=== PATIENT | male | born 1955 | race Caucasian/White ===

== ENCOUNTER → 2018-05-08 | Outpatient (CLI) | payer OTHER ==
[~2018-05-08] MED LIST: CELE100; CEPH500 PO; CYCL10; SULTRIDS PO; TRAM50 PO
== END | disposition home or self-care (01) ==
LOC: LAB EV 15:22 → LAB SHORT 15:22
DX: L08.9 Local infection of the skin and subcutaneous tissue, unspecified (principal)
CPT/HCPCS: 87070; 87147; 87205

== ENCOUNTER → 2019-03-31 | Outpatient (CLI) | payer OTHER ==
[2019-03-31 18:12] LABS: IMMATURE RETIC FRACTION 10.7 % (2.3-16.0); RETIC HGB EQUIVALENT 40.6 pg (28.20-36.60); RETICULOCYTE COUNT PERCENT 1.98 % (0.50-2.50)
== END | disposition home or self-care (01) ==
LOC: LAB SHORT 11:30 → LAB 11:30
PROVIDERS: Internal Medicine Hematology & Oncology
DX: D72.819 Decreased white blood cell count, unspecified (principal); E53.8 Deficiency of other specified B group vitamins
CPT/HCPCS: 85045

== ENCOUNTER 2019-11-18 10:11 | Day surgery (SDC) | payer MEDICARE, OTHER ==
[~2019-11-18] VITALS: Ht 162.6 cm; Wt 66.0 kg
[~2019-11-18 10:11] MED LIST changes: +ALBU90OI INH
--- NOTE | 2019-11-18 11:25 | NUR ---
11/18/19 1125 Yusra Mathur History, Chart, Medications and Allergies reviewed before start of procedure. PATIENT CONFIRMS NPO STATUS AND AGREES WITH SCHEDULED PROCEDURE. MONITOR INTACT WITH CONTINUOUS PULSE OXIMETRY AND INTERMITTENT BP. O2 VIA N/C INTACT THROUGHOUT SEDATION/PROCEDURE. 3-LEAD EKG REVIEWED WITH PHYSICIAN PRIOR TO START OF PROCEDURE. PATIENT DETERMINED TO BE ASA APPROPRIATE FOR PROPOFOL SEDATION PRIOR TO START OF PROCEDURE BY DR. GERMAN.
--- NOTE | 2019-11-18 12:26 | NUR ---
Lungs clear T/O to Auscultation.Ambulatory in Day Surgery Discharge instructions reviewed with patient. Patient verbalizes understanding. Copy given to patient to take home. Discharged via wheelchair to private car for ride home.
== END 2019-11-18 12:24 | disposition home or self-care (01) ==
LOC: ORSCMMR 10:11 → ORD 11:00 → ORSCMMR 11:30
PROVIDERS: Internal Medicine Gastroenterology
PROC: 0DBH8ZX Excision of Cecum, Via Natural or Artificial Opening Endoscopic, Diagnostic (ICD-10-PCS; principal; 2019-11-18 11:30)
DX: R19.5 Other fecal abnormalities (principal); Z86.19 Personal history of other infectious and parasitic diseases; J45.909 Unspecified asthma, uncomplicated
CPT/HCPCS: 88305; J2704; J7120

== ENCOUNTER 2020-10-03 08:52 | Day surgery (SDC) | payer MEDICARE, OTHER ==
[~2020-10-03] VITALS: Ht 165.1 cm; Wt 62.5 kg
[~2020-10-03 08:52] MED LIST changes: +MOTRIN IB200 MG PO
[2020-10-03] MEDS ORDERED: CODACE30 PO (09:44)
--- NOTE | 2020-10-03 10:09 | NUR ---
10/03/20 1009 Elva Restrepo INTERSCALENE NERVE BLOCK CONDUCTED IN PRE-OP WITH DR. FLORES. TIME-OUT & SITE CHECK PERFORMED. DR. FLORES ADMINISTERED 2MG VERSED IVP & 50MCG FENTANYL IVP. PULSE OX ON PATIENT THROUGHOUT PROCEDURE; PT TOLERATED WELL. NO ISSUES OR COMPLICATIONS. COMPLETE AT 1002.
--- NOTE | 2020-10-03 10:39 | NUR ---
10/03/20 1039 Reinaldo Lincoln 1 MG EPI OF EPI ADDED TO EACH OF THE FIRST 3 BAGS OF LR FOR IRRGATION.
--- NOTE | 2020-10-03 11:38 | NUR ---
10/03/20 1138 Zuri Leon DC'Iraida AT 1137. SATS ARE 100%.
== END 2020-10-03 12:40 | disposition home or self-care (01) ==
LOC: ORSCSDS 08:52
PROVIDERS: Orthopaedic Surgery
PROC: 0RNJ4ZZ Release Right Shoulder Joint, Percutaneous Endoscopic Approach (ICD-10-PCS; principal; 2020-10-03 10:30)
PROC: 0LQ14ZZ Repair Right Shoulder Tendon, Percutaneous Endoscopic Approach (ICD-10-PCS; principal; 2020-10-03 10:30)
PROC: 0RBJ4ZZ Excision of Right Shoulder Joint, Percutaneous Endoscopic Approach (ICD-10-PCS; principal; 2020-10-03 10:30)
DX: M75.121 Complete rotator cuff tear or rupture of right shoulder, not specified as traumatic (principal); M75.21 Bicipital tendinitis, right shoulder; M75.41 Impingement syndrome of right shoulder; M19.011 Primary osteoarthritis, right shoulder; J44.9 Chronic obstructive pulmonary disease, unspecified; B19.20 Unspecified viral hepatitis C without hepatic coma; Z79.899 Other long term (current) drug therapy
CPT/HCPCS: C1713; J0171; J0690; J1100; J1885; J2250; J2405; J2704; J2710; J3010; J7120

== ENCOUNTER → 2021-08-09 | Outpatient (CLI) | payer MEDICARE, OTHER ==
[~2021-08-09] MED LIST changes: +CODACE30 PO
[2021-08-09 19:08] LABS: BASOPHILS ABSOLUTE AUTO 0.01 K/mm3 (0.00-0.23); BASOPHILS PERCENT AUTO 1 % (0-2); EOSINOPHILS PERCENT AUTO 0 % (0-6); Hematocrit 34.5 % (37.0-53.0); Hemoglobin 11.7 g/dL (13.5-17.5); IMMATURE GRAN ABSOLUTE AUTO 0.02 K/mm3 (0.00-0.10); IMMATURE GRAN PERCENT AUTO 1 % (0-1); LYMPHOCYTES ABSOLUTE AUTO 0.87 K/mm3 (0.84-5.20); LYMPHOCYTES PERCENT AUTO 52 % (21-46); MONOCYTES PERCENT AUTO 30 % (4-13); Mean Corpuscular HGB 36.7 pg (26.0-34.0); Mean Corpuscular HGB Conc 33.9 g/dL (31.5-36.5); Mean Corpuscular Volume 108 fL (80-100); Mean Platelet Volume 11.5 fL (9.1-12.4); NEUTROPHILS ABSOLUTE AUTO 0.29 K/mm3 (1.96-9.15); NEUTROPHILS PERCENT AUTO 17 % (41-73); Platelet Count 146 K/mm3 (150-400); RDW Coefficient Variation 13.5 % (11.7-14.2); RDW Standard Deviation 53.5 fL (35.1-46.3); Red Blood Cell Count 3.19 M/mm3 (4.30-5.90); White Blood Cell Count 1.69 K/mm3 (4.00-11.30)
[2021-08-09 19:16] LABS: Alanine Aminotransfer (ALT/SGP 23 U/L (12-78); Albumin, Blood 3.9 g/dL (3.4-5.0); Alk Phos 94 U/L (50-136); Anion Gap 7 mmol/L (6-16); Aspartate Aminotrans (AST/SGOT 22 U/L (12-37); Bilirubin, Total 0.7 mg/dL (0.1-1.0); Blood Urea Nitrogen 11 mg/dL (8-24); Bun/Creatinine Ratio 15.3 (12.0-20.0); CO2, Blood 26 mmol/L (21-32); Calcium, Blood 8.4 mg/dL (8.5-10.1); Chloride, Blood 108 mmol/L (98-108); Creatinine, Blood 0.72 mg/dL (0.60-1.20); Ferritin, Serum 78 ng/mL (26-388); Globulin, Blood 3.8 g/dL (2.2-4.0); Glomerular Filtration Rate >60 (60-); Glucose, Blood 90 mg/dL (70-99); Iron Serum 161 ug/dL (65-175); Percent Saturation 40.9 % (20.0-50.0); Potassium, Blood 3.7 mmol/L (3.5-5.5); Sodium, Blood 141 mmol/L (136-145); Total Iron Binding Capacity 394 ug/dL (250-450); Total Protein, Blood 7.7 g/dL (6.4-8.2)
[2021-08-10 18:12] LABS: ANA DIRECT Negative (Negative); ANTI-DNA (DS) AB QN 2 IU/mL (0-9); RNP ANTIBODIES 0.2 AI (0.0-0.9); SJOGREN'S ANTI-SS-A <0.2 AI (0.0-0.9); SJOGREN'S ANTI-SS-B <0.2 AI (0.0-0.9); SMITH ANTIBODIES <0.2 AI (0.0-0.9)
== END | disposition home or self-care (01) ==
LOC: LAB SHORT 17:45 → LAB 17:45
PROVIDERS: Family Medicine
DX: D69.6 Thrombocytopenia, unspecified (principal); D70.9 Neutropenia, unspecified; D75.89 Other specified diseases of blood and blood-forming organs; E53.9 Vitamin B deficiency, unspecified
CPT/HCPCS: 80053; 82306; 82607; 82728; 82746; 83540; 83550; 85025; 86225; 86235

== ENCOUNTER 2022-01-28 11:33 | Inpatient (IN) | payer MEDICARE, OTHER ==
[~2022-01-28] VITALS: Ht 165.1 cm; Wt 67.3 kg
[~2022-01-28 11:33] MED LIST changes: -CYCLOBENZAPRINE5 MG PO
[2022-01-28 12:08] LABS: Mean Corpuscular HGB 41.9 pg (26.0-34.0); Mean Corpuscular HGB Conc 31.3 g/dL (31.5-36.5); NRBC ABSOLUTE 0.37 K/mm3 (0.00-0.02); NRBC Auto 1.4 /100 WBC (0.0-0.2); RDW Coefficient Variation 22.5 % (11.7-14.2); RDW Standard Deviation 105.5 fL (35.1-46.3); Red Blood Cell Count 0.86 M/mm3 (4.30-5.90); White Blood Cell Count 25.95 K/mm3 (4.00-11.30)
[2022-01-28 12:15] LABS: Mean Corpuscular Volume 134 fL (80-100); Mean Platelet Volume 13.4 fL (9.1-12.4)
[2022-01-28 12:16] LABS: Hemoglobin 3.6 g/dL (13.5-17.5); Platelet Count 28 K/mm3 (150-400)
[2022-01-28 12:17] LABS: Hematocrit 11.5 % (37.0-53.0)
[2022-01-28 12:32] LABS: Alanine Aminotransfer (ALT/SGP 119 U/L (12-78); Albumin, Blood 3.3 g/dL (3.4-5.0); Alk Phos 441 U/L (50-136); Anion Gap 12 mmol/L (6-16); Aspartate Aminotrans (AST/SGOT 159 U/L (12-37); Bilirubin, Total 1.2 mg/dL (0.1-1.0); Blood Urea Nitrogen 17 mg/dL (8-24); Bun/Creatinine Ratio 25.2 (12.0-20.0); CO2, Blood 21 mmol/L (21-32); Calcium, Blood 8.7 mg/dL (8.5-10.1); Chloride, Blood 100 mmol/L (98-108); Creatinine, Blood 0.68 mg/dL (0.60-1.20); Globulin, Blood 3.3 g/dL (2.2-4.0); Glomerular Filtration Rate >60 (60-); Glucose, Blood 162 mg/dL (70-99); Potassium, Blood 4.3 mmol/L (3.5-5.5); Sodium, Blood 133 mmol/L (136-145); Total Protein, Blood 6.6 g/dL (6.4-8.2)
[2022-01-28 12:37] LABS: Percent Saturation 72.7 % (20.0-50.0)
[2022-01-28 12:43] LABS: Uric Acid, Blood 7.7 mg/dL (3.5-7.2)
[2022-01-28 12:52] LABS: BAND PERCENT MAN 13 % (0-8); BASOPHILS PERCENT MAN 0 % (0-2); BLASTS PERCENT MAN 2 % (0-0); EOSINOPHILS PERCENT MAN 0 % (0-6); LYMPHOCYTES ABSOLUTE MAN 2.59 K/mm3 (0.84-5.20); LYMPHOCYTES PERCENT MAN 10 % (21-46); METAMYELOCYTE ABSOLUTE MAN 1.55 K/mm3 (0.00-0.00); METAMYELOCYTE PERCENT MAN 6 % (0-0); MONOCYTES ABSOLUTE MAN 2.33 K/mm3 (0.16-1.47); MONOCYTES PERCENT MAN 9 % (4-13); MYELOCYTE ABSOLUTE MAN 2.59 K/mm3 (0.00-0.00); MYELOCYTE PERCENT MAN 10 % (0-0); NEUTROPHILS ABSOLUTE MAN 15.82 K/mm3 (1.96-9.15); PROMYELOCYTE ABSOLUTE MAN 0.51 K/mm3 (0.00-0.00); PROMYELOCYTE PERCENT MAN 2 % (0-0); SEG NEUTROPHILS PERCENT MAN 48 % (41-73); TOTAL CELLS COUNTED 100
[2022-01-28 13:17] LABS: Source, Urine Clean Catch
[2022-01-28 13:23] LABS: Appearance, Urine Clear (Clear); Bilirubin, Urine Neg (Neg); Blood, Urine Neg (Neg); Color, Urine Yellow (P-Yellow); Glucose Qualitative, Urine Neg (Neg); Ketones, Urine Neg (Neg); Leukocyte Esterase, Urine Neg (Neg); Nitrite, Urine Neg (Neg); Protein, Urine Neg (Neg); Urobilinogen, Urine NORM (Normal)
[2022-01-28 13:47] LABS: D-Dimer, Quantitative 22.16 mg/L FEU (0.00-0.52); International Normalized Ratio 1.61; Prothrombin Time Results 16.4 Sec (9.7-11.5)
[2022-01-28 13:47] LABS: U Amphetamine Screen DETECTED; U Barbituate Screen Not Detected; U Benzodiazapine Screen DETECTED; U Buprenorphine Screen Not Detected; U Cannabinoids Screen DETECTED; U Cocaine Screen Not Detected; U Methadone Screen Not Detected; U Methamphetamine Screen DETECTED; U Opiates Screen Not Detected; U Oxycodone Screen Not Detected; U Phencyclidine Screen Not Detected; U Propoxyphene Screen Not Detected
[2022-01-28] MEDS ORDERED: CYCLOBENZAPRINE5 MG PO (14:48)
--- NOTE | 2022-01-28 17:44 | NUR ---
ASSUMPTION OF CARE RECEIVED REPORT AT 1612 FROM MURTAZA TIERNEY, PATIENT ARRIVED TO UNIT FROM ED VIA GURNEY AT 1659. 3 PERSON TRANSFER TO BED. PATIENT A/O, VITALS STABLE ON RA. PRBC INFUSING TO RAC IV. ADDITIONAL IV BEING PLACED UPON ARRIVAL TO UNIT. PATIENT DENIED PAIN, JUST STATED HE FELT COLD. ANSWERING QUESTIONS APPROPRIATELY, CALM AND COOPERATIVE WITH CARE. REDNESS NOTED TO COCCYX, BLANCHABLE. REPOSITIONED PATIENT TO SIDE. ORDERS REVEIWED. WILL TREAT PRESCRIBED.
[2022-01-28 21:50] LABS: Hematocrit 22.9 % (37.0-53.0); Hemoglobin 7.9 g/dL (13.5-17.5); Mean Corpuscular HGB 32.5 pg (26.0-34.0); Mean Corpuscular HGB Conc 34.5 g/dL (31.5-36.5); NRBC ABSOLUTE 0.43 K/mm3 (0.00-0.02); NRBC Auto 1.9 /100 WBC (0.0-0.2); RDW Coefficient Variation 24.2 % (11.7-14.2); RDW Standard Deviation 54.8 fL (35.1-46.3); Red Blood Cell Count 2.43 M/mm3 (4.30-5.90); White Blood Cell Count 22.55 K/mm3 (4.00-11.30)
[2022-01-28 21:51] LABS: Mean Corpuscular Volume 94 fL (80-100)
[2022-01-28 21:55] LABS: Platelet Count 19 K/mm3 (150-400)
[2022-01-28 22:58] LABS: BAND PERCENT MAN 31 % (0-8); BASOPHILS PERCENT MAN 0 % (0-2); BLASTS PERCENT MAN 3 % (0-0); EOSINOPHILS PERCENT MAN 0 % (0-6); LYMPHOCYTES ABSOLUTE MAN 2.25 K/mm3 (0.84-5.20); LYMPHOCYTES PERCENT MAN 10 % (21-46); METAMYELOCYTE ABSOLUTE MAN 3.15 K/mm3 (0.00-0.00); METAMYELOCYTE PERCENT MAN 14 % (0-0); MONOCYTES ABSOLUTE MAN 5.86 K/mm3 (0.16-1.47); MONOCYTES PERCENT MAN 26 % (4-13); MYELOCYTE ABSOLUTE MAN 1.12 K/mm3 (0.00-0.00); MYELOCYTE PERCENT MAN 5 % (0-0); NEUTROPHILS ABSOLUTE MAN 8.79 K/mm3 (1.96-9.15); PROMYELOCYTE ABSOLUTE MAN 0.67 K/mm3 (0.00-0.00); PROMYELOCYTE PERCENT MAN 3 % (0-0); SEG NEUTROPHILS PERCENT MAN 8 % (41-73); TOTAL CELLS COUNTED 100
[2022-01-29 03:43] LABS: Hematocrit 23.8 % (37.0-53.0); Mean Corpuscular HGB 31.6 pg (26.0-34.0); Mean Corpuscular HGB Conc 33.6 g/dL (31.5-36.5); Mean Corpuscular Volume 94 fL (80-100); NRBC ABSOLUTE 0.45 K/mm3 (0.00-0.02); NRBC Auto 1.9 /100 WBC (0.0-0.2); RDW Standard Deviation 53.7 fL (35.1-46.3); Red Blood Cell Count 2.53 M/mm3 (4.30-5.90); White Blood Cell Count 23.74 K/mm3 (4.00-11.30)
[2022-01-29 03:57] LABS: International Normalized Ratio 1.75; Prothrombin Time Results 17.7 Sec (9.7-11.5)
[2022-01-29 03:59] LABS: Alanine Aminotransfer (ALT/SGP 96 U/L (12-78); Alk Phos 385 U/L (50-136); Anion Gap 9 mmol/L (6-16); Aspartate Aminotrans (AST/SGOT 159 U/L (12-37); Bilirubin, Total 2.5 mg/dL (0.1-1.0); Blood Urea Nitrogen 16 mg/dL (8-24); Bun/Creatinine Ratio 22.4 (12.0-20.0); CO2, Blood 20 mmol/L (21-32); Calcium, Blood 7.9 mg/dL (8.5-10.1); Chloride, Blood 103 mmol/L (98-108); Creatinine, Blood 0.72 mg/dL (0.60-1.20); Globulin, Blood 2.9 g/dL (2.2-4.0); Glomerular Filtration Rate >60 (60-); Glucose, Blood 113 mg/dL (70-99); Potassium, Blood 3.8 mmol/L (3.5-5.5); Sodium, Blood 132 mmol/L (136-145); Total Protein, Blood 5.9 g/dL (6.4-8.2)
[2022-01-29 04:56] LABS: BAND PERCENT MAN 23 % (0-8); BASOPHILS PERCENT MAN 0 % (0-2); BLASTS PERCENT MAN 4 % (0-0); EOSINOPHILS PERCENT MAN 0 % (0-6); LYMPHOCYTES ABSOLUTE MAN 5.46 K/mm3 (0.84-5.20); LYMPHOCYTES PERCENT MAN 23 % (21-46); METAMYELOCYTE ABSOLUTE MAN 0.71 K/mm3 (0.00-0.00); METAMYELOCYTE PERCENT MAN 3 % (0-0); MONOCYTES ABSOLUTE MAN 3.32 K/mm3 (0.16-1.47); MONOCYTES PERCENT MAN 14 % (4-13); MYELOCYTE ABSOLUTE MAN 1.89 K/mm3 (0.00-0.00); MYELOCYTE PERCENT MAN 8 % (0-0); NEUTROPHILS ABSOLUTE MAN 11.15 K/mm3 (1.96-9.15); PROMYELOCYTE ABSOLUTE MAN 0.23 K/mm3 (0.00-0.00); PROMYELOCYTE PERCENT MAN 1 % (0-0); SEG NEUTROPHILS PERCENT MAN 24 % (41-73); TOTAL CELLS COUNTED 100
--- NOTE | 2022-01-29 05:16 | NUR ---
Increased pain through night, complains of right shoulder and back hurting. Periods of loud moaning, yelling "It hurts". Called hospitalist for orders, pain meds started. increased hallucinations and agitation, unable to settle. Becomes very difficult to understand needs. Thrashing in bed. Libruim given per eMAR for elevated CWOL score. At one point yelling has to urinate. Attempted to use urinal. Passed 150 of urine but unable to urinate more, continues to yell has to urinate. bladder scan completed with 550 ml showing. Straight cath performed with 350 urine return. Heart rate and blood pressure increasing with agitation. hospitalist called. tried ativan for agiatation with no decrease in rate or b/p. called hospitalist back order recieved and labatelol given with good response.
[2022-01-29 05:44] LABS: Platelet Count 18 K/mm3 (150-400)
--- NOTE | 2022-01-29 06:50 | NUR ---
woke from sleep, very agitiated, yelling incoherently. mumbling, growling. attempting to climb out of bed unable to redirect. hospitalist called. orders recieved.
[2022-01-29 07:01] LABS: IMMATURE RETIC FRACTION 41.2 % (2.3-16.0); RETIC HGB EQUIVALENT 41.1 pg (28.20-36.60); RETICULOCYTE ABSOLUTE 0.1242 M/mm3 (0.0200-0.1100); RETICULOCYTE COUNT PERCENT 4.95 % (0.50-2.50)
[2022-01-29 07:31] LABS: Base Excess Venous -4.8 mmol/L; Bicarbonate Venous 20.6 mmol/L (24.0-30.0); PCO2 Venous 30.2 mmHg (38-42); pH Blood Venous 7.42 (7.34-7.37)
[2022-01-29 09:32] LABS: Bilirubin, Direct 0.6 mg/dL (0.0-0.3); Bilirubin, Indirect 2.4 mg/dL (0.1-0.7)
--- NOTE | 2022-01-29 09:34 | NUR ---
PATIENT RESTLESS, ALL OVER BED, SCREAMING OUT. PRIMARY NURSE IN ANOTHER ROOM. PATIENT ASKED WHY HE WAS SO RESTLESS. PATIENT YELLED "I AM IN PAIN". PATIENT HAS SCHEDULED PO PAIN MEDICATION BUT DID NOT RECEIVE THIS AM. NO IV PAIN MEDICATIONS ORDERED. DR. DOMINIQUE CALLED AND ORDER OBTAINED FOR OT 25 MG IV FENTANYL. FENTANYL GIVEN AND PATIENT APPEARS MORE COMFORTABLE AND RESTING QUIETLY AT THIS TIME. PRIMARY NURSE UPDATED.
--- NOTE | 2022-01-29 12:23 | NUR ---
ASSUMED CARE OF PT@0715. PT OPENS EYES TO VERBAL STIMULATION, GARBLED SPEECH, FAILS TO FOLLOW COMMANDS. PT PULLING AT LINES/CORDS AND ATTEMPTING TO CLIMB OUT OF BED, PRESTON VEST IN PLACE. CIWA PROTOCOL IN PLACE, CURRENT CIWA SCORE 19. PRECEDEX GTT STARTED D/T PT AGITATION. PUPIL 3 MM EQUAL AND REACTIVE TO LIGHT. SATS 90-95% ON 2L NC, OCCASIONAL EXPIRATORY WHEEZE HEARD. SIT WITH HR 100-140'S. SBP 140-170'S. ABDOMEN MODERATELY DISTENDED, SOFT TO PALPATION. BLADDER SCAN PERFORMED AFTER PT INCONTINENT IN BED, RED TINGED URINARY OUTPUT. 500 ML URINARY RETENTION, TEMPLE PLACED AND LEFT IN PLACE. PO MEDICATIONS HELD D/T PTS AMS. SEE FULL SHIFT ASSESSMENT.
[2022-01-29 12:50] LABS: Source, Urine Foley catheter
--- NOTE | 2022-01-29 13:00 | NUR ---
PT NOT REDIRECTABLE, THROWING LEGS OVER SIDE OF BED, YELLING AND PULLING LINES AND CORDS. PLACED IN BILATERAL SOFT WRIST RESTRAINTS, TITRATING PRECEDEX GTT, CURRENT CIWA 18
[2022-01-29 13:16] LABS: Appearance, Urine Cloudy (Clear); Bilirubin, Urine Neg (Neg); Blood, Urine 5+ (Neg); Color, Urine Red (P-Yellow); Glucose Qualitative, Urine Neg (Neg); Ketones, Urine Neg (Neg); Leukocyte Esterase, Urine 1+ (Neg); Nitrite, Urine Neg (Neg); Protein, Urine 3+ (Neg); Urobilinogen, Urine NORM (Normal)
[2022-01-29 13:56] LABS: Red Blood Cells, Urine TNTC /hpf (0-2); White Blood Cells, Urine 25-50 /hpf (0-5)
[2022-01-29 13:58] LABS: Squamous Epithelial Cells Rare /hpf (Few)
[2022-01-29 14:00] LABS: Bacteria Rare /hpf
[2022-01-29 15:41] LABS: BASOPHILS ABSOLUTE AUTO 0.05 K/mm3 (0.00-0.23); BASOPHILS PERCENT AUTO 0 % (0-2); Hemoglobin 6.1 g/dL (13.5-17.5); Mean Corpuscular HGB 32.4 pg (26.0-34.0); Mean Corpuscular HGB Conc 32.1 g/dL (31.5-36.5); NRBC ABSOLUTE 0.34 K/mm3 (0.00-0.02); NRBC Auto 1.5 /100 WBC (0.0-0.2); RDW Coefficient Variation 27.7 % (11.7-14.2); RDW Standard Deviation 71.3 fL (35.1-46.3); Red Blood Cell Count 1.88 M/mm3 (4.30-5.90); White Blood Cell Count 22.79 K/mm3 (4.00-11.30)
--- NOTE | 2022-01-29 15:52 | NUR ---
PT CONTINUES TO BE UNCOOPERATIVE WITH CARE, PT FLAILING IN BED AND KICKING AROUND. WILL CANCEL CT UNTIL PT ABLE TO TOLERATE PROCEDURE. NURSE NOTIFY PLACED TO REORDER WHEN PT MORE STABLE.
[2022-01-29 15:58] LABS: International Normalized Ratio 1.77; Prothrombin Time Results 17.9 Sec (9.7-11.5)
--- NOTE | 2022-01-29 16:13 | NUR ---
Spiritual care Visit requested by nursing staff Pt. is soundly sleeping but SO friend is preasant and is displaying spiritual distress because of the uncertain diagnosis of Pt. Both seem to be operating with support system deficits. This cold water machine operator invited the SO to the ICU lounge as she was experiencing significnat catharsis. Provide a calming presence and listen empathicially. Both Pt. and SO operate with very broad spiritual understanding. Identified past unresolved grief in the SO's life/ Offer some pastoral health counselor. SO displays evidence of agreement and understanding. SO vebrlaized gratitude for the spiritual care visit.
[2022-01-29 16:21] LABS: EOSINOPHILS ABSOLUTE AUTO 0.01 K/mm3 (0.00-0.68); EOSINOPHILS PERCENT AUTO 0 % (0-6); IMMATURE GRAN ABSOLUTE AUTO 3.55 K/mm3 (0.00-0.10); IMMATURE GRAN PERCENT AUTO 16 % (0-1); LYMPHOCYTES ABSOLUTE AUTO 2.28 K/mm3 (0.84-5.20); LYMPHOCYTES PERCENT AUTO 10 % (21-46); MONOCYTES ABSOLUTE AUTO 7.51 K/mm3 (0.16-1.47); MONOCYTES PERCENT AUTO 33 % (4-13); Mean Corpuscular Volume 101 fL (80-100); NEUTROPHILS ABSOLUTE AUTO 9.39 K/mm3 (1.96-9.15); NEUTROPHILS PERCENT AUTO 41 % (41-73)
[2022-01-29 16:23] LABS: Platelet Count 12 K/mm3 (150-400)
[2022-01-29 17:03] LABS: Alanine Aminotransfer (ALT/SGP 76 U/L (12-78); Albumin, Blood 2.5 g/dL (3.4-5.0); Albumin/Globulin Ratio 0.9 (0.8-1.8); Alk Phos 337 U/L (50-136); Anion Gap 9 mmol/L (6-16); Aspartate Aminotrans (AST/SGOT 181 U/L (12-37); Bilirubin, Total 2.3 mg/dL (0.1-1.0); Blood Urea Nitrogen 17 mg/dL (8-24); Bun/Creatinine Ratio 27.8 (12.0-20.0); CO2, Blood 20 mmol/L (21-32); Calcium, Blood 7.3 mg/dL (8.5-10.1); Chloride, Blood 103 mmol/L (98-108); Creatinine, Blood 0.61 mg/dL (0.60-1.20); Globulin, Blood 2.7 g/dL (2.2-4.0); Glomerular Filtration Rate >60 (60-); Glucose, Blood 166 mg/dL (70-99); Lactate Dehydrogenase (Ld),Bld 1660 U/L (100-240); Potassium, Blood 3.8 mmol/L (3.5-5.5); Sodium, Blood 132 mmol/L (136-145); Total Protein, Blood 5.2 g/dL (6.4-8.2)
[2022-01-29 17:25] LABS: BASOPHILS ABSOLUTE AUTO 0.06 K/mm3 (0.00-0.23); BASOPHILS PERCENT AUTO 0 % (0-2); Hematocrit 19.7 % (37.0-53.0); Hemoglobin 6.7 g/dL (13.5-17.5); Mean Corpuscular HGB 32.2 pg (26.0-34.0); NRBC ABSOLUTE 0.28 K/mm3 (0.00-0.02); NRBC Auto 1.2 /100 WBC (0.0-0.2); RDW Coefficient Variation 25.9 % (11.7-14.2); RDW Standard Deviation 71.5 fL (35.1-46.3); Red Blood Cell Count 2.08 M/mm3 (4.30-5.90); White Blood Cell Count 23.57 K/mm3 (4.00-11.30)
[2022-01-29 17:37] LABS: BAND PERCENT MAN 13 % (0-8); BASOPHILS PERCENT MAN 0 % (0-2); EOSINOPHILS PERCENT MAN 0 % (0-6); LYMPHOCYTES ABSOLUTE MAN 3.41 K/mm3 (0.84-5.20); LYMPHOCYTES PERCENT MAN 15 % (21-46); METAMYELOCYTE ABSOLUTE MAN 0.45 K/mm3 (0.00-0.00); METAMYELOCYTE PERCENT MAN 2 % (0-0); MONOCYTES ABSOLUTE MAN 5.92 K/mm3 (0.16-1.47); MONOCYTES PERCENT MAN 26 % (4-13); MYELOCYTE PERCENT MAN 11 % (0-0); NEUTROPHILS ABSOLUTE MAN 10.48 K/mm3 (1.96-9.15); SEG NEUTROPHILS PERCENT MAN 33 % (41-73); TOTAL CELLS COUNTED 100
--- NOTE | 2022-01-29 18:08 | NUR ---
SHIFT SUMMARY PT CONTINUES TO HAVE AMS, UNCOOPERATIVE WITH CARE, NOT DIRECTABLE. PT'S S/O AT BEDSIDE FOR SEVERAL HOURS THIS EVENING, SHE IS VERY TEARFUL STATING SHE IS CONCERNED THAT PT WAS "EXPOSED TO TOXINS ON THEIR FARM". PT REMAINS IN BILATERAL SOFT RESTRAINTS AND PRESTON VEST TO PROTECT LINES/CORDS AND PREVENT UNSAFE AMBULATION. PRECEDEX @ 1.4 MCG/KG/HR. CIWA SCORES OF 19 T/O SHIFT. 700 ML BLOOD TINGED URINARY OUTPUT. BANANA BAGA INFUSING @ 200 ML/HR, 1L LR TO BE INFUSED FOLLOWING BANANA BAG. ECHO COMPLETED THIS EVENING-PENDING RESULTS. EVENING CBC AND BMP REDRAWN D/T DISCREPENCY, ORDER TO REDRAW LABS AND INFUSED 2U PRBC IS HGB<7. WILL REPORT TO ONCOMING NURSE.
[2022-01-29 18:36] LABS: EOSINOPHILS ABSOLUTE AUTO 0.02 K/mm3 (0.00-0.68); EOSINOPHILS PERCENT AUTO 0 % (0-6); IMMATURE GRAN ABSOLUTE AUTO 3.51 K/mm3 (0.00-0.10); IMMATURE GRAN PERCENT AUTO 15 % (0-1); LYMPHOCYTES ABSOLUTE AUTO 2.85 K/mm3 (0.84-5.20); LYMPHOCYTES PERCENT AUTO 12 % (21-46); MONOCYTES ABSOLUTE AUTO 7.31 K/mm3 (0.16-1.47); MONOCYTES PERCENT AUTO 31 % (4-13); Mean Corpuscular Volume 95 fL (80-100); NEUTROPHILS ABSOLUTE AUTO 9.82 K/mm3 (1.96-9.15); NEUTROPHILS PERCENT AUTO 42 % (41-73)
[2022-01-29 18:45] LABS: Platelet Count 12 K/mm3 (150-400)
[2022-01-29 18:50] LABS: BAND PERCENT MAN 12 % (0-8); BASOPHILS PERCENT MAN 0 % (0-2); EOSINOPHILS PERCENT MAN 0 % (0-6); LYMPHOCYTES ABSOLUTE MAN 1.64 K/mm3 (0.84-5.20); LYMPHOCYTES PERCENT MAN 7 % (21-46); METAMYELOCYTE ABSOLUTE MAN 0.23 K/mm3 (0.00-0.00); METAMYELOCYTE PERCENT MAN 1 % (0-0); MONOCYTES ABSOLUTE MAN 6.83 K/mm3 (0.16-1.47); MONOCYTES PERCENT MAN 29 % (4-13); MYELOCYTE ABSOLUTE MAN 2.35 K/mm3 (0.00-0.00); MYELOCYTE PERCENT MAN 10 % (0-0); NEUTROPHILS ABSOLUTE MAN 12.49 K/mm3 (1.96-9.15); SEG NEUTROPHILS PERCENT MAN 41 % (41-73); TOTAL CELLS COUNTED 100
--- NOTE | 2022-01-29 19:00 | NUR ---
ASSUMED CARE ASSUMED CARE OF PATIENT. PT CONTINUES TO BE RESTLESS AND AGITATED, YELLING OUT AND ATTEMPTING TO CLIMB OUT OF BED. PRECEDEX INFUSING AT 1.4MCG/KG/HR. BILATERAL SOFT WRIST RESTRAINTS AND PRESTON VEST IN PLACE. SPEECH IS INCOMPREHENSIBLE. MOVES ALL EXTREMITES. DOES NOT FOLLOW COMMANDS. BANANA BAG INFUSING AT 200CC/HR. MONITOR SHOWS NSR, RATE 70-80s. BP STABLE AT THIS TIME. TEMPLE PATENT AND DRAINING TO GRAVITY- CRANBERRY URINE NOTED. REYNA PICC LINE IS OOZING MODERATE AMOUNT OF BLOOD- DRSG JUST RECENTLY CHANGED BY DAY SHIFT RN. SCDs TO BLE. TO RECEIVE 2 UNITS PRBC WHEN AVAILABLE. SEE SHIFT ASSESSMENT FOR FULL ASSESSMENT.
--- NOTE | 2022-01-29 21:45 | NUR ---
AGITATION PT WITH INCREASED AGITATION AND RESTLESSNESS. CONTINUES TO BLEED FROM PICC LINE SITE AND FROM PREVIOUS IV SITE. CALL TO DR. MCGILL TO DISCUSS ABOVE FINDINGS- NEW ORDERS RECEIVED FOR IV ATIVAN AND TO RECHECK CBC AFTER SECOND UNIT OF BLOOD.
--- NOTE | 2022-01-29 23:00 | NUR ---
PAIN/AGITATION PT CONTINUES TO BE AGITATED. CRYING/YELLING. SPEECH IS DIFFICULT TO UNDERSTAND, BUT OCCASIONALLY SAYS "OW". NEW ORDER RECEIVED FOR FENTANYL 25MCG IV Q4H FOR PAIN.
[2022-01-30 00:41] LABS: Hematocrit 23.5 % (37.0-53.0); Hemoglobin 8.1 g/dL (13.5-17.5); Mean Corpuscular HGB 31.6 pg (26.0-34.0); Mean Corpuscular HGB Conc 34.5 g/dL (31.5-36.5); Mean Corpuscular Volume 92 fL (80-100); NRBC ABSOLUTE 0.18 K/mm3 (0.00-0.02); NRBC Auto 0.8 /100 WBC (0.0-0.2); RDW Coefficient Variation 22.5 % (11.7-14.2); RDW Standard Deviation 59.5 fL (35.1-46.3); Red Blood Cell Count 2.56 M/mm3 (4.30-5.90); White Blood Cell Count 21.65 K/mm3 (4.00-11.30)
[2022-01-30 00:52] LABS: Platelet Count 11 K/mm3 (150-400)
[2022-01-30 01:02] LABS: BAND PERCENT MAN 29 % (0-8); BASOPHILS ABSOLUTE MAN 0.21 K/mm3 (0.00-0.23); BASOPHILS PERCENT MAN 1 % (0-2); EOSINOPHILS PERCENT MAN 0 % (0-6); LYMPHOCYTES % ATYPICAL MANUAL 1 % (0-0); LYMPHOCYTES ABSOLUTE MAN 3.68 K/mm3 (0.84-5.20); LYMPHOCYTES PERCENT MAN 16 % (21-46); METAMYELOCYTE ABSOLUTE MAN 1.94 K/mm3 (0.00-0.00); METAMYELOCYTE PERCENT MAN 9 % (0-0); MONOCYTES ABSOLUTE MAN 4.33 K/mm3 (0.16-1.47); MONOCYTES PERCENT MAN 20 % (4-13); MYELOCYTE ABSOLUTE MAN 1.73 K/mm3 (0.00-0.00); MYELOCYTE PERCENT MAN 8 % (0-0); NEUTROPHILS ABSOLUTE MAN 9.74 K/mm3 (1.96-9.15); SEG NEUTROPHILS PERCENT MAN 16 % (41-73); TOTAL CELLS COUNTED 100
--- NOTE | 2022-01-30 01:07 | NUR ---
PAIN/AGITATION/CRITICAL LABS DR. MCGILL NOTIFIED OF PT'S CONTINUED AGITATION/RESTLESSNESS. DISCUSSED THE FACT THAT THE FENTANYL SEEMED TO WORK WELL FOR THE PATIENT AND THAT THE PATIENT WAS LESS AGITATED AFTERWARDS. ALSO DISCUSSED CRITICAL PLATELET COUNT AND CONTINUED BLEEDING FROM PICC LINE. WILL RECHECK PLATELETS WITH AM LABS AND WILL CONTINUE TO MONITOR BLEEDING.
[2022-01-30 04:32] LABS: Hematocrit 22.9 % (37.0-53.0); Hemoglobin 7.9 g/dL (13.5-17.5); Mean Corpuscular HGB 31.6 pg (26.0-34.0); Mean Corpuscular HGB Conc 34.5 g/dL (31.5-36.5); Mean Corpuscular Volume 92 fL (80-100); NRBC ABSOLUTE 0.12 K/mm3 (0.00-0.02); NRBC Auto 0.6 /100 WBC (0.0-0.2); RDW Coefficient Variation 22.4 % (11.7-14.2); RDW Standard Deviation 57.9 fL (35.1-46.3); White Blood Cell Count 20.87 K/mm3 (4.00-11.30)
[2022-01-30 04:44] LABS: Platelet Count 11 K/mm3 (150-400)
[2022-01-30 05:00] LABS: Alanine Aminotransfer (ALT/SGP 64 U/L (12-78); Albumin, Blood 2.3 g/dL (3.4-5.0); Albumin/Globulin Ratio 0.9 (0.8-1.8); Alk Phos 293 U/L (50-136); Anion Gap 7 mmol/L (6-16); Aspartate Aminotrans (AST/SGOT 172 U/L (12-37); Bilirubin, Total 2.1 mg/dL (0.1-1.0); Blood Urea Nitrogen 17 mg/dL (8-24); Bun/Creatinine Ratio 35.6 (12.0-20.0); CO2, Blood 23 mmol/L (21-32); Calcium, Blood 7.2 mg/dL (8.5-10.1); Chloride, Blood 104 mmol/L (98-108); Creatinine, Blood 0.48 mg/dL (0.60-1.20); Globulin, Blood 2.6 g/dL (2.2-4.0); Glomerular Filtration Rate >60 (60-); Glucose, Blood 143 mg/dL (70-99); Potassium, Blood 3.7 mmol/L (3.5-5.5); Sodium, Blood 134 mmol/L (136-145); Total Protein, Blood 4.9 g/dL (6.4-8.2)
[2022-01-30 05:31] LABS: BAND PERCENT MAN 21 % (0-8); BASOPHILS PERCENT MAN 0 % (0-2); BLASTS PERCENT MAN 3 % (0-0); EOSINOPHILS PERCENT MAN 0 % (0-6); LYMPHOCYTES ABSOLUTE MAN 4.38 K/mm3 (0.84-5.20); LYMPHOCYTES PERCENT MAN 21 % (21-46); METAMYELOCYTE ABSOLUTE MAN 1.46 K/mm3 (0.00-0.00); METAMYELOCYTE PERCENT MAN 7 % (0-0); MONOCYTES ABSOLUTE MAN 3.75 K/mm3 (0.16-1.47); MONOCYTES PERCENT MAN 18 % (4-13); MYELOCYTE ABSOLUTE MAN 0.62 K/mm3 (0.00-0.00); MYELOCYTE PERCENT MAN 3 % (0-0); NEUTROPHILS ABSOLUTE MAN 9.18 K/mm3 (1.96-9.15); PROMYELOCYTE ABSOLUTE MAN 0.83 K/mm3 (0.00-0.00); PROMYELOCYTE PERCENT MAN 4 % (0-0); SEG NEUTROPHILS PERCENT MAN 23 % (41-73); TOTAL CELLS COUNTED 100
--- NOTE | 2022-01-30 06:47 | NUR ---
SHIFT SUMMARY PT CONTINUES TO HAVE FREQUENT PERIODS OF AGITATION, INCREASED WITH ANY STIMULATION. PRECEDEX CONTINUES AT 1.4MCG/KG/HR. MEDICATED WITH ATIVAN 2MG IV X 1 AND FENTANYL 25MCG IV X 2 DOSES DURING SHIFT. SPEECH IS STILL INCOMPREHENSIBLE. PT OCCASIONALLY ANSWERS YES/NO QUESTIONS SEEMINGLY APPROPRIATELY. YELLS/CRIES OUT INTERMITTENTLY. VSS. AFEBRILE. RECEIVED 2 UNITS PRBC DURING SHIFT. LR INFUSING AT 125CC/HR FOR ONE BAG. PLATELET COUNT CONTINUES TO BE CRITICAL- MD IS AWARE. CONTINUES WITH BLEEDING AT REYNA PICC SITE. REYNA IS BRUISED AND SWOLLEN. MULTIPLE DRSG CHANGES REQUIRED. NPO D/T ASPIRATION RISK TEMPLE PATENT AND DRAINING TO GRAVITY. WILL REPORT TO ONCOMING RN WHEN AVAILABLE.
--- NOTE | 2022-01-30 11:40 | NUR ---
CARE OF PT ASSUMED AT 0700. PT SEDATED ON PRECEDEX AT 1.4MCG FOR ETOH WITHDRAWAL. PT AWAKENS TO VOICE. PT CONFUSED BUT ABLE TO SPEAK; ONE WORD ONLY. "IM COLD" PT NODDED HEAD NO TO PAIN. PT SOMEWHAT CALM AND FALLS ASLEEP QUICKLY AFTER QUESTIONED. DR SANTANA AT BEDSIDE THIS AM , FULL UPDATE GIVEN. PA FROM RADIOLOGY CAME BY THIS AM TO EVALUATE FOR BONE BX. RADIOLOGY MAY ATTEMPT BONE BX LATER THIS AFTERNOON ID SCHEDULE ALLOWS. PT MAY REQUIRE ADDITIONAL ATIVAN FOR PROCEDURE. NG CONSIDERED FOR TUBE FEEDS BUT DUE TO HIS LOW PLATELETS TPN VIA PICC LINE WILL BE STARTED INSTEAD FOR NOW. LR IS TO BE CONTINUED AT 125CC/HR UNTIL TPN STARTS TONIGHT. 1 PACK OF PLATELET PHERESIS GIVEN THIS AM; PT DORINDA WELL WITHOUT ANY ADVERSE EFFECTS. BLEEDING AT PICC SITE HAS STOPPED. HEMATURIA HAS CLEARED UP.
[2022-01-30 13:20] LABS: Hematocrit 23.1 % (37.0-53.0); Hemoglobin 8.1 g/dL (13.5-17.5); Mean Corpuscular HGB 32.1 pg (26.0-34.0); Mean Corpuscular HGB Conc 35.1 g/dL (31.5-36.5); Mean Corpuscular Volume 92 fL (80-100); Mean Platelet Volume 11.3 fL (9.1-12.4); NRBC ABSOLUTE 0.16 K/mm3 (0.00-0.02); NRBC Auto 0.8 /100 WBC (0.0-0.2); RDW Coefficient Variation 23.2 % (11.7-14.2); RDW Standard Deviation 60.3 fL (35.1-46.3); Red Blood Cell Count 2.52 M/mm3 (4.30-5.90); White Blood Cell Count 20.27 K/mm3 (4.00-11.30)
[2022-01-30 13:24] LABS: Platelet Count 40 K/mm3 (150-400)
--- NOTE | 2022-01-30 13:30 | NUR ---
PT WOKE UP AROUND 1200 VERY AGITATED. WORDS INCOMPREHENSIBLE. PT DRIFTED BACK TO SLEEP AFTER ORAL CARE. PLATELETS UP TO 40.
[2022-01-30 13:45] LABS: BAND PERCENT MAN 8 % (0-8); BASOPHILS PERCENT MAN 0 % (0-2); EOSINOPHILS PERCENT MAN 1 % (0-6); LYMPHOCYTES ABSOLUTE MAN 1.82 K/mm3 (0.84-5.20); LYMPHOCYTES PERCENT MAN 9 % (21-46); METAMYELOCYTE ABSOLUTE MAN 1.01 K/mm3 (0.00-0.00); METAMYELOCYTE PERCENT MAN 5 % (0-0); MONOCYTES ABSOLUTE MAN 6.48 K/mm3 (0.16-1.47); MONOCYTES PERCENT MAN 32 % (4-13); MYELOCYTE ABSOLUTE MAN 2.22 K/mm3 (0.00-0.00); MYELOCYTE PERCENT MAN 11 % (0-0); NEUTROPHILS ABSOLUTE MAN 8.31 K/mm3 (1.96-9.15); PROMYELOCYTE PERCENT MAN 1 % (0-0); SEG NEUTROPHILS PERCENT MAN 33 % (41-73); TOTAL CELLS COUNTED 100
--- NOTE | 2022-01-30 16:18 | NUR ---
UPDATE: DR AGOSTO PLANS TO DO THE CT GUIDED BONE MARROW BX TOMORROW. PLATELET RESULTS GIVEN TO DR JENNINGS. PRECEDEX DECREASED TO 1.2MCG. PT FOLLOWING MORE DIRECTIONS, MORE CALM, BUT REMAINS CONFUSED. PT'S AT BEDSIDE. FULL BEDBATH GIVEN.
--- NOTE | 2022-01-30 17:00 | NUR ---
DR HANLEY IN TO SEE PT. DR HANLEY CONSENTED PT FOR BONE MARROW BX, TO BE DONE AT 1000.
--- NOTE | 2022-01-30 18:45 | NUR ---
PT WOKE UP AGITATED, SPEECH IS BECOMING MORE CLEAR. PT YELLED OUT REPEATEDLY, "I NEED TO LAY ON MY STOMACH!" WHEN ASKED IF HE SLEEPS LIKE THAT AT HOME HE SAID NO, WHEN ASKED WHY HE WANTED TO LAY ON HIS STOMACH HE YELLED, "I DONT KNOW, I JUST KNOW THAT I NEED TO". WHEN ASKED IF HE WAS HURTING PT STATED "YES, EVERYWHERE AND IN MY BACK" FENTANYL 25MCG GIVEN W GOOD EFFECT.
--- NOTE | 2022-01-30 19:00 | NUR ---
ASSUMED CARE ASSUMED CARE OF PATIENT. PRECEDEX CONTINUES AT 1.4MCG/KG/HR. PT HAS FREQUENT PERIODS OF AGITATION AND RESTLESSNESS. OPENS EYES SPONTANEOUSLY. MOVES ALL EXTREMITIES AND ATTEMPTS TO GET OUT OF BED. OCCASIONALLY FOLLOWS SIMPLE COMMANDS. SPEECH IS GARBLED AND DIFFICULT TO UNDERSTAND. ANSWERS YES/NO QUESTIONS APPROPRIATELY. MONITOR SHOWS SR, BUT CHANGES TO ST WHEN AGITATED. BP STABLE. O2 2LNC TO MAINTAIN SATS >90%. NPO D/T ASPIRATION RISK. TEMPLE PATENT AND DRAINING TO GRAVITY. TPN INFUSING AT 70CC/HR PER ORDER. SEE SHIFT ASSESSMENT FOR FULL ASSESSMENT.
--- NOTE | 2022-01-30 19:55 | NUR ---
AGITATION CALL PLACED TO DR. WILLS D/T INCREASE IN AGITATION DESPITE PRECEDEX AT 1.4MCG/KG/HR AND FENTANYL ORDERED. NEW ORDER RECEIVED FOR ATIVAN.
[2022-01-30 21:42] LABS: Hematocrit 23.7 % (37.0-53.0); Hemoglobin 8.1 g/dL (13.5-17.5); Mean Corpuscular HGB 31.5 pg (26.0-34.0); Mean Corpuscular HGB Conc 34.2 g/dL (31.5-36.5); Mean Corpuscular Volume 92 fL (80-100); Mean Platelet Volume 9.6 fL (9.1-12.4); NRBC ABSOLUTE 0.18 K/mm3 (0.00-0.02); NRBC Auto 0.9 /100 WBC (0.0-0.2); RDW Coefficient Variation 23.3 % (11.7-14.2); RDW Standard Deviation 63.6 fL (35.1-46.3); Red Blood Cell Count 2.57 M/mm3 (4.30-5.90); White Blood Cell Count 20.29 K/mm3 (4.00-11.30)
[2022-01-30 21:47] LABS: Platelet Count 39 K/mm3 (150-400)
[2022-01-30 22:04] LABS: BAND PERCENT MAN 13 % (0-8); BASOPHILS PERCENT MAN 0 % (0-2); EOSINOPHILS PERCENT MAN 0 % (0-6); LYMPHOCYTES ABSOLUTE MAN 2.23 K/mm3 (0.84-5.20); LYMPHOCYTES PERCENT MAN 11 % (21-46); METAMYELOCYTE ABSOLUTE MAN 1.01 K/mm3 (0.00-0.00); METAMYELOCYTE PERCENT MAN 5 % (0-0); MONOCYTES ABSOLUTE MAN 4.86 K/mm3 (0.16-1.47); MONOCYTES PERCENT MAN 24 % (4-13); MYELOCYTE ABSOLUTE MAN 2.43 K/mm3 (0.00-0.00); MYELOCYTE PERCENT MAN 12 % (0-0); NEUTROPHILS ABSOLUTE MAN 9.53 K/mm3 (1.96-9.15); PROMYELOCYTE PERCENT MAN 1 % (0-0); SEG NEUTROPHILS PERCENT MAN 34 % (41-73); TOTAL CELLS COUNTED 100
--- NOTE | 2022-01-30 22:30 | NUR ---
AGITATION/CALL TO MD DR. WILLS NOTIFIED OF CONTINUED AGITATION AFTER ATIVAN GIVEN. PT IS YELLING AND CRYING. PULLING AGAINST RESTRAINTS. HR INCREASED TO 130s. NEW ORDER RECEIVED FOR PHENOBARBITAL IV.
[2022-01-31 04:20] LABS: Hematocrit 22.8 % (37.0-53.0); Hemoglobin 7.8 g/dL (13.5-17.5); Mean Corpuscular HGB 31.7 pg (26.0-34.0); Mean Corpuscular HGB Conc 34.2 g/dL (31.5-36.5); Mean Corpuscular Volume 93 fL (80-100); Mean Platelet Volume 9.8 fL (9.1-12.4); NRBC ABSOLUTE 0.35 K/mm3 (0.00-0.02); NRBC Auto 1.4 /100 WBC (0.0-0.2); RDW Coefficient Variation 23.5 % (11.7-14.2); RDW Standard Deviation 64.3 fL (35.1-46.3); Red Blood Cell Count 2.46 M/mm3 (4.30-5.90); White Blood Cell Count 25.77 K/mm3 (4.00-11.30)
[2022-01-31 04:26] LABS: Platelet Count 32 K/mm3 (150-400)
[2022-01-31 04:40] LABS: Alanine Aminotransfer (ALT/SGP 58 U/L (12-78); Albumin, Blood 2.5 g/dL (3.4-5.0); Albumin/Globulin Ratio 0.9 (0.8-1.8); Alk Phos 406 U/L (50-136); Anion Gap 8 mmol/L (6-16); Aspartate Aminotrans (AST/SGOT 207 U/L (12-37); Blood Urea Nitrogen 18 mg/dL (8-24); Bun/Creatinine Ratio 33.7 (12.0-20.0); CO2, Blood 23 mmol/L (21-32); Calcium, Blood 7.5 mg/dL (8.5-10.1); Chloride, Blood 106 mmol/L (98-108); Creatinine, Blood 0.53 mg/dL (0.60-1.20); Globulin, Blood 2.8 g/dL (2.2-4.0); Glomerular Filtration Rate 110 (60-); Glucose, Blood 140 mg/dL (70-99); Phosphorus, Blood 2.2 mg/dL (2.5-4.9); Potassium, Blood 3.9 mmol/L (3.5-5.5); Sodium, Blood 137 mmol/L (136-145); Total Protein, Blood 5.3 g/dL (6.4-8.2); Triglycerides 191 mg/dL (30-160)
[2022-01-31 06:23] LABS: BAND PERCENT MAN 13 % (0-8); BASOPHILS PERCENT MAN 0 % (0-2); EOSINOPHILS ABSOLUTE MAN 0.25 K/mm3 (0.00-0.68); EOSINOPHILS PERCENT MAN 1 % (0-6); LYMPHOCYTES ABSOLUTE MAN 4.38 K/mm3 (0.84-5.20); LYMPHOCYTES PERCENT MAN 17 % (21-46); METAMYELOCYTE ABSOLUTE MAN 1.03 K/mm3 (0.00-0.00); METAMYELOCYTE PERCENT MAN 4 % (0-0); MONOCYTES ABSOLUTE MAN 5.15 K/mm3 (0.16-1.47); MONOCYTES PERCENT MAN 20 % (4-13); MYELOCYTE ABSOLUTE MAN 3.86 K/mm3 (0.00-0.00); MYELOCYTE PERCENT MAN 15 % (0-0); NEUTROPHILS ABSOLUTE MAN 11.08 K/mm3 (1.96-9.15); SEG NEUTROPHILS PERCENT MAN 30 % (41-73); TOTAL CELLS COUNTED 100
--- NOTE | 2022-01-31 06:42 | NUR ---
SHIFT SUMMARY MULTIPLE CALLS TO MD DURING NOC D/T PT'S INCREASED AGITATION AND RESLTLESSNESS. PRECEDEX CONTINUES AT 1.4MCG/KG/HR. ALSO MEDICATED WITH ATIVAN 8MG IV TOTAL, PHENOBARBITAL 390MG IV TOTAL, AND FENTANYL 175MCG IV TOTAL. PT CONTINUES TO BE RESTLESS AND AGITATED. YELLING/CRYING OUT. PULLING AGAINST RESTRAINTS. KICKS LEGS OVER SIDE OF BED WHEN RESTRAINTS OFF. BILATERAL UPPER AND LOWER EXTREMITIES WITH SOFT RESTRAINTS. ORIENTED TO SELF ONLY. OCCASIONALLY FOLLOWS SIMPLE COMMANDS, BUT NOT CONSISTENTLY. MOVES ALL EXTREMITIES AND REPOSITIONS SELF. PULLS ON TUBES/LINES WHEN RESTRAINTS LOOSEN. SPEECH IS STILL GARBLED. MONITOR SHOWS SR-ST. HR AND BP ELEVATED WITH AGITATION. MEDICATED WITH LABETALOL 10MG IV X 1 DOSE THIS AM. NPO. TEMPLE PATENT AND DRAINING TO GRAVITY. PLATELETS ARE STILL CRITICALLY LOW. NO OBVIOUS SIGNS OF BLEEDING. REYNA PICC WITH BLOODY DRSG, BUT DRSG CHANGE DEFERRED UNTIL PLATELETS IMPROVE. WILL REPORT TO ONCOMING RN WHEN AVAILABLE.
--- NOTE | 2022-01-31 07:51 | NUR ---
CARE OF PT ASSUMED AT 0700. PT SEVERLY AGITATED THRASHING IN BED. PT MOANING, GROWLING LOUDLY. PT DOES NOT OPEN EYES OR FOLLOW COMMANDS. PT TACHY 120 AND HYPERTENSIVE. PRECEDEX PLACED ON SB OR 30MIN TO SEE I PT WOULD WAKE UP MORE AND RESPOND APPROPRIATLY. AT 30MIN PT BECAME EVEN MORE AGITATED, THRASHING HEAD FROM SIDE TO SIDE, HR INCREASED TO 130'S, BP 183/114, PT YELLING LOUDLY (NO WORDS). PRECEDEX RESUMED, ATIVAN 2MG GIVEN. PT RIGHT HAND BRUISED AND SWOLLEN FROM CONSTANTLY PULLING ON RESTRAINTS. WILL NOTIFY
--- NOTE | 2022-01-31 08:00 | NUR ---
DR SANTANA CALLED AND UPDATED. HE WILL BE BY SHORTLY TO SEE PT.
--- NOTE | 2022-01-31 08:14 | NUR ---
RESP 30-40'S, BREATHING IS LABORED. INSP EXP WHEEZES T/O, COARSE T/O. SATS 97% ON 2L VIA N/C. MD NOTIFIED. CHEST XRAY ORDERED.
--- NOTE | 2022-01-31 08:47 | NUR ---
DR SANTANA AT BEDSIDE. FENT 25MCG AND 130MG PHENOBARBITAL GIVEN PER MD. CHEST XRAY ORDERED. DR DOMINIQUE AT BEDSIDE SOON AFTER. MD TO SPEAK W S/O. DR VENTURA AT BEDSIDE THIS AM. OPTIONS INCLUDE INTUBATION, COMFORT CARE, CONT W CURRENT CARE.
[2022-01-31 09:18] LABS: Base Excess Venous -2.1 mmol/L; Bicarbonate Venous 22.8 mmol/L (24.0-30.0); PCO2 Venous 33.1 mmHg (38-42); PO2 Venous 65.1 mmHg (38-42); pH Blood Venous 7.43 (7.34-7.37)
--- NOTE | 2022-01-31 10:16 | NUR ---
TEMP 102.4, NOTIFIED. PT VERY AGITATED, BP 206/121; ATIVAN 2MG GIVEN
--- NOTE | 2022-01-31 10:20 | NUR ---
Spiritual Care - Requested by ICU nurse Ramesh Smith. Pt. is mostly non responsive. Reason for the request is the SO who has displayed emotional instability with regard to the Pts. condition. SO welcomed my visit, but instantly became cathartic. With a calming presence and pastoral care, Pt. verbalized her concern about Pt. and Palliative Care. Listened empathetically, and educated SO about Palliative Care...(eg. what it is, and what it isn't.) SO displayed evidence of understanding and acceptance. Prayed for Pt. During prayer Pt. disaplayed evidence of agitation, so this pyrotechnic mixer kept his words brief. Reported experience to both Care Management and Palliative Care after ICU rounding.
--- NOTE | 2022-01-31 11:37 | NUR ---
Supportive visit this AM. Spoke with Hand Sole Seweromar La, Primary RN Ayanna and discussed case prior to visiting with Pt and spouse. Pt resting in bed with his eyes closed. Pt appears altered and anxious. Pt does not engage in conversation but does moan continuously. Pt's SO Clarice at bedside. Reviewed plan of care with Clarice and offered therapeutic listening. Clarice appears to be experiencing significant anxiety and is indecisive. She confirms his wishes for DNR status. Clarice reports Pt has 3 sons who live in the [facility]. She reports Pt and children were estranged for a while but their relationship has improved recently and regular contact is made. Sons names are Syed, Aquiles, and Kay. Continued therapeutic listening and discussed potential needs for decision making in the future. Ended visit to allow Clarice to visit with Pt. Jennifer Syed [phone] Aquiles [phone] Kay [phone] Will plan for continued supportive visits and if needed will contact children. Palliative Care will remain available
--- NOTE | 2022-01-31 13:16 | NUR ---
DR VENTURA WAS ABLE TO COMPLETE THE BONE BX WITH ASSISTANCE FROM DR KWAN (ANESTHESIOLOGIST). PT RECEIVED PROPOFOL FOR THE PROCEDURE AND IS SLEEPING NOW, VSS. PT'S S/O WAS UPDATED. BANDAID TO RIGHT HIP; AREA IS OOZING. PLATELETS WHERE GIVEN EARLIER TODAY; PT TOLERATED WELL W/O ANY ADVERSE REACTIONS. TYLENOL MT GIVEN FOR TEMP.
[2022-01-31 16:11] LABS: A/G RATIO 1.2 (0.7-1.7); ALBUMIN 3.2 g/dL (2.9-4.4); ALPHA-1-GLOBULIN 0.4 g/dL (0.0-0.4); ALPHA-2-GLOBULIN 0.5 g/dL (0.4-1.0); GAMMA GLOBULIN 0.7 g/dL (0.4-1.8); GLOBULIN, TOTAL 2.6 g/dL (2.2-3.9); M-SPIKE Not Observed g/dL (Not Observed); PROTEIN, TOTAL, SERUM 5.8 g/dL (6.0-8.5)
--- NOTE | 2022-01-31 16:18 | NUR ---
PT MORE AWAKE, AGITATED, GROANS, NON-VERBAL, VERY RESTLESS IN BED, DOES NOT OPEN EYES OR FOLLOW COMMANDS. BONE MARROW SITE W SLOW OOZ, DRSG CHANGED. DRSG CHANGED TO PICC. LARGE HEMATOMA/BRUISING PRESENT, AREA SEEMS TO HAVE STOPPED BLEEDING. ORAL CARE AND DEEP SUCTIONING HAS BEEN PROVIDED FREQUENTLY T/O SHIFT. PT STILL DOES NOT HAVE A GAG REFLEX, OCC. WEAK COUGH. MOUTH WITH DRIED BLOOD AND CAST. SMALL BLOOD CLOT REMOVED FROM BACK OF THROAT THIS AM. PRECEDEX REMAINS AT 1.4MCG.
[2022-01-31 18:06] LABS: HEPATITIS C QUANTITATION HCV Not Detected IU/mL (.)
--- NOTE | 2022-01-31 19:00 | NUR ---
ASSUMED CARE ASSUMED CARE OF PATIENT. PRECEDEX CONTINUES AT 1.4MCG/KG/HR. CONTINUES WITH PERIODS OF SEVERE AGITATION. ORIENTED TO SELF ONLY. MOVES ALL EXTREMITES, BUT DOES NOT FOLLOW COMMANDS. MOANS FREQUENTLY. BILATERAL UPPER AND LOWER EXTREMITIES WITH SOFT RESTRAINTS. MONITOR SHOWS SR, RATE 90s. PT BECOMES TACHYCARDIC AND HYPERTENSIVE WITH AGITATION. NPO D/T ASPIRATION RISK. TEMPLE PATENT AND DRAINING TO GRAVITY. TPN INFUSING PER ORDER. SEE SHIFT ASSESSMENT FOR FULL ASSESSMENT.
[2022-01-31 21:37] LABS: Hemoglobin 7.1 g/dL (13.5-17.5); Mean Corpuscular HGB 32.3 pg (26.0-34.0); Mean Corpuscular HGB Conc 33.8 g/dL (31.5-36.5); Mean Corpuscular Volume 96 fL (80-100); Mean Platelet Volume 11.3 fL (9.1-12.4); NRBC ABSOLUTE 0.27 K/mm3 (0.00-0.02); NRBC Auto 1.1 /100 WBC (0.0-0.2); RDW Coefficient Variation 24.2 % (11.7-14.2); White Blood Cell Count 24.42 K/mm3 (4.00-11.30)
[2022-01-31 21:41] LABS: Platelet Count 20 K/mm3 (150-400)
[2022-01-31 22:02] LABS: BAND PERCENT MAN 28 % (0-8); BASOPHILS PERCENT MAN 0 % (0-2); EOSINOPHILS PERCENT MAN 0 % (0-6); LYMPHOCYTES ABSOLUTE MAN 1.95 K/mm3 (0.84-5.20); LYMPHOCYTES PERCENT MAN 8 % (21-46); METAMYELOCYTE ABSOLUTE MAN 0.97 K/mm3 (0.00-0.00); METAMYELOCYTE PERCENT MAN 4 % (0-0); MONOCYTES ABSOLUTE MAN 5.86 K/mm3 (0.16-1.47); MONOCYTES PERCENT MAN 24 % (4-13); MYELOCYTE ABSOLUTE MAN 2.93 K/mm3 (0.00-0.00); MYELOCYTE PERCENT MAN 12 % (0-0); NEUTROPHILS ABSOLUTE MAN 12.69 K/mm3 (1.96-9.15); SEG NEUTROPHILS PERCENT MAN 24 % (41-73); TOTAL CELLS COUNTED 100
--- NOTE | 2022-02-01 01:12 | NUR ---
HYPERTHERMIA PER RECTAL PROBE, TEMPERATURE IS 103.1F. ICE BAGS APPLIED TO AXILLA, NECK, AND GROIN AT THIS TIME.
[2022-02-01 04:18] LABS: Hemoglobin 7.2 g/dL (13.5-17.5); Mean Corpuscular HGB 32.4 pg (26.0-34.0); Mean Corpuscular HGB Conc 34.3 g/dL (31.5-36.5); Mean Corpuscular Volume 95 fL (80-100); NRBC ABSOLUTE 0.28 K/mm3 (0.00-0.02); RDW Coefficient Variation 24.4 % (11.7-14.2); Red Blood Cell Count 2.22 M/mm3 (4.30-5.90); White Blood Cell Count 29.35 K/mm3 (4.00-11.30)
[2022-02-01 04:20] LABS: Platelet Count 18 K/mm3 (150-400)
[2022-02-01 04:37] LABS: Albumin, Blood 2.5 g/dL (3.4-5.0); Albumin/Globulin Ratio 0.8 (0.8-1.8); Bilirubin, Total 2.3 mg/dL (0.1-1.0); Bun/Creatinine Ratio 36.2 (12.0-20.0); Calcium, Blood 7.8 mg/dL (8.5-10.1); Creatinine, Blood 0.55 mg/dL (0.60-1.20); Globulin, Blood 3.3 g/dL (2.2-4.0); Phosphorus, Blood 2.8 mg/dL (2.5-4.9); Potassium, Blood 4.3 mmol/L (3.5-5.5); Total Protein, Blood 5.8 g/dL (6.4-8.2)
[2022-02-01 04:44] LABS: BAND PERCENT MAN 25 % (0-8); BASOPHILS ABSOLUTE MAN 0.29 K/mm3 (0.00-0.23); BASOPHILS PERCENT MAN 1 % (0-2); EOSINOPHILS PERCENT MAN 0 % (0-6); LYMPHOCYTES ABSOLUTE MAN 3.81 K/mm3 (0.84-5.20); LYMPHOCYTES PERCENT MAN 13 % (21-46); METAMYELOCYTE ABSOLUTE MAN 0.88 K/mm3 (0.00-0.00); METAMYELOCYTE PERCENT MAN 3 % (0-0); MONOCYTES PERCENT MAN 14 % (4-13); MYELOCYTE ABSOLUTE MAN 4.69 K/mm3 (0.00-0.00); MYELOCYTE PERCENT MAN 16 % (0-0); NEUTROPHILS ABSOLUTE MAN 15.55 K/mm3 (1.96-9.15); SEG NEUTROPHILS PERCENT MAN 28 % (41-73); TOTAL CELLS COUNTED 100
--- NOTE | 2022-02-01 06:25 | NUR ---
BLOODY ORAL SECRETIONS PT NOTED TO HAVE COPIOUS ORAL SECRETIONS IN MOUTH WITH GURGLING RESPIRATIONS. SXd COPIOUS BLOOD FROM BACK OF THROAT. ALSO FOUND SEVERAL LARGE BLOOD CLOTS. NO GAG REFLEX STILL. UNABLE TO COUGH UP SECRETIONS. OCCASIONAL SNORING RESPIRATIONS. HUMIDIFIED O2 5L NC.
--- NOTE | 2022-02-01 06:44 | NUR ---
SHIFT SUMMARY PRECEDEX CONTINUED AT 1.4MCG/KG/HR T/O SHIFT. ALSO MEDICATED WITH FENTANYL 50MCG IV X 3 DOSES, ATIVAN 4MG IV X 2 DOSES, AND PHENOBARBITAL 130MG IV X 1 DOSE SEDATION ADJUNCT. PT WAS HAVING FREQUENT PERIODS OF AGITATION AND RESTLESSNESS, BUT IS LESS AGITATED/RESTLESS THIS AM. OCCASIONALLY HYPERTENSIVE AND TACHYCARDIC WITH AGITATION. MEDICATED WITH LABETALOL 10MG IV X 1 DOSE. REMAINS NPO. MOUTH IS EXTREMELY DRY DESPITE FREQUENT ORAL CARE. TMAX 103.2F. TYLENOL SUPPOSITORY GIVEN X 1. TEMPLE PATENT AND DRAINING TO GRAVITY. TPN INFUSING PER ORDER. CRITICAL PLATELETS THIS AM OF 18. WILL REPORT TO ONCOMING RN WHEN AVAILABLE.
[2022-02-01 08:32] LABS: Hematocrit 19.2 % (37.0-53.0); Hemoglobin 6.5 g/dL (13.5-17.5)
--- NOTE | 2022-02-01 09:52 | NUR ---
ASSUMED CARE OF PT, REPORT RCV'D FROM INALL ROMERO. PT WITHDRAWS FROM PAINFUL STIMULI, FAILS TO FOLLOW COMMANDS. MOANS WITH GARBLED WORDS. LUNG SOUNDS COARSE BILATERAL UPPER/LOWER, WITH EXPIRATORY WHEEZE BILATERAL UPPER. GURGLING IN BACK OF THROAT, ORAL CARE PERFORMED WITH ATTEMPT TO SUCTION. PRECEDEX REDUCED TO 1.0 MCG/KG/HR. TEMPLE PATENT AND DRAINING TO GRAVITY. PT'S S/O AT BEDSIDE. SEE FULL SHIFT ASSESSMENT.
--- NOTE | 2022-02-01 10:37 | NUR ---
Spiritual Care (check in) Pt. is occasionally groaning and grasping but is otherwise unresponsive. Spouse welcomes my visit. Spouse verbalizes desire to have the Pt. recover but also verbalized trust in the ICU staff's medical decisions regarding the Pt. Spouse verbalized gratitude for the spiritual care visit, and this inspector quality assurance agreed to return later in the day.
--- NOTE | 2022-02-01 10:56 | NUR ---
Reviewed chart and discussed case with wilmer. Pt awaiting on acceptance for transfer. Pt resting in bed with his eyes closed and is intubated. Pt appears comfortable with no S/S of distress at this time. Pt's SO Lary at bedside. Provided update and therapeutic listening. Lary reports speaking with family and all agree that Pt would want to continue with current plan of care but would not want chest compressions if his heart stopped. Pt is ok with defribrilation, medication, and intubation. Continued therapeutic listening and answered questions. Spoke with Primary RN Ericka and discussed case. Spoke with Dr Berger and discussed case. Changed Pt's code status to limited with wishes for intubation, defribrilation, and medication per V/O from Dr Berger. Palliative Care will remain available.
--- NOTE | 2022-02-01 13:08 | NUR ---
Supportive visit this afternoon. Pt resting in bed with his eyes closed. Pt appears mildly anxious. SO Clarice at bedside. Offered therapeutic listening and provided update. Lean expresses appreciation. Ended visit to allow continued visiting with Pt. Spoke with Primary RN Allen and discussed case.
--- NOTE | 2022-02-01 17:11 | NUR ---
Spirtual Care Referral. ICU nurse requested this yolk spray drier to be available for the Pt. and the (SO) (who had been called to return to the hospital). Pt. is being seen by the hospitalist team and they are present as is Palliative Care and attending ICU nurses. When SO arrives she displays evidence of reasonable panic and cartharsis. Pastoral Care with a calming presence seemed ineffective. Medical team attempted to rouse with medicine. After a period of time of increased agitatation by the Pt. the SO requested that "Comfort Care" begin. After initial round of comfort meds this yolk spray drier was able to engage with SO in a way that she displayed evidence of reduced anxiety and acceptance of the Pts. commpormised health prognosis. Prayed with SO and Pt. SO is at bedside and verbalized gratitude for all of the efforts of the medical team and for her spiritual care. This yolk spray drier will round back through ICU and check on SO before I clock out this evening.
--- NOTE | 2022-02-01 17:20 | NUR ---
Pt respiratory status has declined. Care Team including hospitalist and residents provided update to Pt's SO Clarice. Goals of care discussed with Clarice reporting Pt would want to focus on comfort. Educated on comfort care philosophy with V/U made by Clarice. Called and spoke with Pt's oldest son Syed [phone]. Provided update, discussed Pt condition and consideration of comfort care as Pt would not want to be intubated or receive CPR. Syed calls his brother Aquiles (Pt's middle son) and calls back reporting he and Aquiles are in agreement Pt should be placed on comfort care. Translation Director Shwan provides spiritual and emotional support for Clarice. Placed comfort care order, comfort care order set, D/C maintenance medications per V/O from Dr Bonilla. Spoke with Primary RN Allen and discussed case. Palliative Care will remain available for symptom management and supportive visits.
--- NOTE | 2022-02-01 18:24 | NUR ---
SHIFT SUMMARY PTS SATS 83%, GURGLING SOUNDS IN BACK OF THROAT. GENTLE SUCTIONED LARGE AMOUNT OF KIMBERLEY BLOOD. PT PLACED ON NRB 15L TO MAINTAIN SATS>90%. SBP>200, HR 140'S. PT GIVE 50 MCG OF FENTANYL. PT'S S/O CONTACTED BY PALLIATIVE CARE REQUESTING THAT SHE RETURN TO THE HOSPITAL. HOSPITALIST AT BEDSIDE. PT MINIMALLY RESPONSIVE TO PAINFUL STIMULI. PT GIVEN 0.4 OF NARCAN WITH NO IMPROVEMENT IN RESPIRATORY STATUS. PRECEDEX RESTARTED AND LABETALOL GIVEN. PT'S S/O REQUESTING COMFORT CARE, PALLIATIVE CARE CALLED PT'S SONS IN [place] TO UPDATE-AGREED COMFORT CARE IS APPROPRIATE. COMFORT ORDERS PLACED. PT'S S/O REMAINS AT BEDSIDE. WILL REPORT TO ONCOMING NURSE.
--- NOTE | 2022-02-01 19:15 | NUR ---
ASSUMED CARE OF PT AT 1915. PT IS RESTING COMFORTABLY IN BED WITH SIGNIFICANT OTHER AT BEDSIDE. REPOSITIONED PT TO LEFT SIDE WITH PT'S SIGNIFICANT OTHER IN BED NEXT TO PT, S.O WILL CALL WHEN PT NEEDS REPOSITIONING. PT GRIMACED UPON REPOSITON, HAS AIR HUNGER AND GURGLING. SUCTIONED BLOOD OUT OF BACK OF THROAT. PT'S SIGNIFICANT OTHER SAYS SHE WILL SUCTION MORE IF NEEDED. CALL LIGHT IS WITHIN REACH. SEE SHIFT SUMMARY FOR FURTHER DETAILS.
--- NOTE | 2022-02-01 23:25 | NUR ---
TIME OF AT 23:20. REMAINS AT BEDSIDE. DECLINED PASTORAL CARE. LIST OF HOME RESOURCES GIVEN TO , PENDING DECISION.
== END 2022-02-01 23:20 | DRG 871 ==
LOC: ER 11:33 → ICUE 14:43 → ICUW 14:43 → ICUE 16:21
PROVIDERS: Emergency Medicine; Family Medicine; Hospitalist; Internal Medicine Hematology & Oncology; Nurse Practitioner Acute Care; Physician Assistant; Student in an Organized Health Care Education/Training Program; ADMIT Internal Medicine
PROC: 3E03329 Introduction of Other Anti-infective into Peripheral Vein, Percutaneous Approach (ICD-10-PCS; principal; 2022-01-28)
PROC: HZ2ZZZZ Detoxification Services for Substance Abuse Treatment (ICD-10-PCS; 2022-01-28)
PROC: 07DR3ZX Extraction of Iliac Bone Marrow, Percutaneous Approach, Diagnostic (ICD-10-PCS; 2022-02-01)
PROC: 30233N1 Transfusion of Nonautologous Red Blood Cells into Peripheral Vein, Percutaneous Approach (ICD-10-PCS; 2022-02-01)
PROC: 30233R1 Transfusion of Nonautologous Platelets into Peripheral Vein, Percutaneous Approach (ICD-10-PCS; 2022-02-01)
PROC: 05HY33Z Insertion of Infusion Device into Upper Vein, Percutaneous Approach (ICD-10-PCS; 2022-02-01)
DX: A41.9 Sepsis, unspecified organism (principal); J18.9 Pneumonia, unspecified organism; G92.8 Other toxic encephalopathy; J69.0 Pneumonitis due to inhalation of food and vomit; J96.01 Acute respiratory failure with hypoxia; N39.0 Urinary tract infection, site not specified; C92.10 Chronic myeloid leukemia, BCR/ABL-positive, not having achieved remission; F10.231 Alcohol dependence with withdrawal delirium; C79.52 Secondary malignant neoplasm of bone marrow; R64 Cachexia; D61.818 Other pancytopenia; Z66 Do not resuscitate; Z51.5 Encounter for palliative care; Z78.1 Physical restraint status; D53.9 Nutritional anemia, unspecified; R65.20 Severe sepsis without septic shock; R74.01 Elevation of levels of liver transaminase levels; E88.89 Other specified metabolic disorders; R31.9 Hematuria, unspecified; M70.42 Prepatellar bursitis, left knee; Z71.51 Drug abuse counseling and surveillance of drug abuser; D70.9 Neutropenia, unspecified; J44.9 Chronic obstructive pulmonary disease, unspecified; H40.9 Unspecified glaucoma; J45.909 Unspecified asthma, uncomplicated; F15.10 Other stimulant abuse, uncomplicated; D69.6 Thrombocytopenia, unspecified; Z98.890 Other specified postprocedural states; Z79.899 Other long term (current) drug therapy; Z86.19 Personal history of other infectious and parasitic diseases; Z68.22 Body mass index [BMI] 22.0-22.9, adult
CPT/HCPCS: 36415; 36430; 36569; 51701; 51702; 71045; 76705; 80053; 81001; 81003; 81206; 81207; 82140; 82247; 82248; 82272; 82607; 82728; 82746; 82803; 83010; 83540; 83550; 83605; 83615; 83735; 83880; 84100; 84145; 84165; 84443; 84478; 84550; 85014; 85018; 85025; 85045; 85379; 85384; 85610; 85730; 86850; 86900; 86901; 86923; 87040; 87086; 87522; 88305; 88311; 88341; 88342; 93005; 93010; 93306; 99285-25; A9270; C1751; J0456; J0696; J2001; J2060; J2270; J2310; J2543; J2560; J2704; J3010; J3411; J3475; J7030; J7040; J7042; J7050; J7060; J7120; P9016; P9035

== ENCOUNTER → 2022-01-28 | Outpatient (CLI) | payer MEDICARE, OTHER ==
[~2022-01-28] MED LIST changes: +CYCLOBENZAPRINE5 MG PO
[2022-01-28 11:16] LABS: Alanine Aminotransfer (ALT/SGP 126 U/L (12-78); Albumin, Blood 3.2 g/dL (3.4-5.0); Alk Phos 457 U/L (40-126); Anion Gap 13 mmol/L (6-16); Aspartate Aminotrans (AST/SGOT 155 U/L (12-37); Bilirubin, Total 1.2 mg/dL (0.1-1.0); Blood Urea Nitrogen 18 mg/dL (8-24); Bun/Creatinine Ratio 16.8 (12.0-20.0); CO2, Blood 23 mmol/L (21-32); Calcium, Blood 8.4 mg/dL (8.5-10.1); Chloride, Blood 98 mmol/L (98-108); Creatinine, Blood 1.07 mg/dL (0.60-1.20); Globulin, Blood 3.1 g/dL (2.2-4.0); Glomerular Filtration Rate >60 (60-); Glucose, Blood 163 mg/dL (70-99); Potassium, Blood 4.2 mmol/L (3.5-5.5); Sodium, Blood 134 mmol/L (136-145); Total Protein, Blood 6.3 g/dL (6.4-8.2)
[2022-01-28 11:24] LABS: Mean Corpuscular HGB 41.2 pg (26.0-34.0); Mean Corpuscular HGB Conc 32.1 g/dL (31.5-36.5); Mean Corpuscular Volume 128 fL (80-100); NRBC ABSOLUTE 0.37 K/mm3 (0.00-0.02); NRBC Auto 1.5 /100 WBC (0.0-0.2); RDW Coefficient Variation 22.3 % (11.7-14.2); Red Blood Cell Count 0.85 M/mm3 (4.30-5.90); White Blood Cell Count 24.15 K/mm3 (4.00-11.30)
[2022-01-28 11:32] LABS: Hematocrit 10.9 % (37.0-53.0); Mean Platelet Volume 13.6 fL (9.1-12.4); Platelet Count 26 K/mm3 (150-400)
[2022-01-28 11:33] LABS: Hemoglobin 3.5 g/dL (13.5-17.5)
[2022-01-28 11:49] LABS: BAND PERCENT MAN 15 % (0-8); BASOPHILS ABSOLUTE MAN 0.24 K/mm3 (0.00-0.23); BASOPHILS PERCENT MAN 1 % (0-2); BLASTS PERCENT MAN 5 % (0-0); EOSINOPHILS PERCENT MAN 0 % (0-6); LYMPHOCYTES ABSOLUTE MAN 1.93 K/mm3 (0.84-5.20); LYMPHOCYTES PERCENT MAN 8 % (21-46); METAMYELOCYTE PERCENT MAN 5 % (0-0); MONOCYTES ABSOLUTE MAN 1.93 K/mm3 (0.16-1.47); MONOCYTES PERCENT MAN 8 % (4-13); MYELOCYTE ABSOLUTE MAN 6.27 K/mm3 (0.00-0.00); MYELOCYTE PERCENT MAN 26 % (0-0); NEUTROPHILS ABSOLUTE MAN 11.35 K/mm3 (1.96-9.15); SEG NEUTROPHILS PERCENT MAN 32 % (41-73); TOTAL CELLS COUNTED 100
== END | disposition home or self-care (01) ==
LOC: LAB 11:00 → LAB SHORT 11:00
PROVIDERS: Family Medicine
DX: R10.9 Unspecified abdominal pain (principal)
CPT/HCPCS: 80053; 83690; 85025